=== PATIENT | female | born 1985 | race African-American/Black ===

== ENCOUNTER → 2018-07-30 | Outpatient (CLI) | payer OTHER | END | disposition home or self-care (01) | LOC: LAB 09:23 | DX: D47.3 Essential (hemorrhagic) thrombocythemia (principal); D68.69 Other thrombophilia; R87.810 Cervical high risk human papillomavirus (HPV) DNA test positive; D50.8 Other iron deficiency anemias; D51.8 Other vitamin B12 deficiency anemias; I10 Essential (primary) hypertension; D51.1 Vitamin B12 deficiency anemia due to selective vitamin B12 malabsorption with proteinuria; D51.0 Vitamin B12 deficiency anemia due to intrinsic factor deficiency; E06.3 Autoimmune thyroiditis; E03.8 Other specified hypothyroidism ==